=== PATIENT | male | born 1965 ===

== ENCOUNTER 2017-07-27 12:44 | Emergency (ER) | payer MEDICAID ==
[2017-07-27 12:45] VITALS: BMI 31.0
[2017-07-27 13:02] VITALS: BP 145/88; PULSE 78; RESP 20; TEMP 98.5; O2SAT 99
[2017-07-27 14:10] LABS: BASO # 0.1 K/uL (0.0-0.2); BASO % 1.2 % (0.0-2.0); EOS # 0.3 K/uL (0.0-0.7); EOS % 3.8 % (0.0-4.0); LYMPH # 2.6 K/uL (1.0-4.3); LYMPH % 38.1 % (20.0-40.0); MEAN CELL VOLUME 77.8 fL (80.0-94.0); MEAN CORPUSCULAR HEMOGLOBIN 25.5 pg (27.0-31.0); MEAN CORPUSCULAR HGB CONC 32.8 g/dL (33.0-37.0); MEAN PLATELET VOLUME 8.2 fL (7.2-11.7); MONO # 0.6 K/uL (0.0-0.8); MONO % 8.1 % (0.0-10.0); NEUT # 3.3 K/uL (1.8-7.0); NEUT % 48.8 % (50.0-75.0); NRBC % 0.1 % (0.0-2.0); RBC 5.49 Mil/uL (4.40-5.90); RED CELL DISTRIBUTION WIDTH 16.3 % (11.5-14.5); WHITE BLOOD COUNT 6.8 K/uL (4.8-10.8)
--- NOTE | 2017-07-27 14:16 | RAD ---
PROCEDURE: Radiographs of the chest and abdomen (obstructive series) HISTORY: Abdominal pain COMPARISON: No prior. TECHNIQUE: AP radiograph of the chest, with upright and supine radiographs of the abdomen. FINDINGS: CHEST: Lungs: The lungs are clear. Cardiovascular: Normal size heart. No pulmonary vascular congestion. Pleura: No pleural fluid. No pneumothorax. Other findings: None. ABDOMEN AND PELVIS: Bowel: There is large amount of stool in the colon. No evidence of mechanical obstruction. Free air: None. Bones: Unremarkable. Other findings: None. IMPRESSION: Constipation. No evidence of bowel obstruction. Clear lungs.
[2017-07-27 14:18] LABS: URINE BILIRUBIN NEGATIVE (NEGATIVE); URINE BLOOD NEGATIVE (NEGATIVE); URINE CLARITY Clear (Clear); URINE COLOR Colorless (YELLOW); URINE GLUCOSE (UA) NORMAL (Normal); URINE LEUKOCYTE ESTERASE NEG Leu/uL (Negative); URINE NITRATE NEGATIVE (NEGATIVE); URINE PROTEIN NEGATIVE (NEGATIVE); URINE UROBILINOGEN NORMAL mg/dL (0.2-1.0)
[2017-07-27 14:24] LABS: ALB/GLOB RATIO 1.3 (1.0-2.1); ALBUMIN 4.1 g/dL (3.5-5.0); ALT/SGPT 42 U/L (21-72); AST/SGOT 24 U/L (17-59); BLOOD UREA NITROGEN 11 mg/dL (9-20); CALCIUM 8.2 mg/dl (8.6-10.4); GFR AFRICAN-AMERICAN > 60; GFR NON-AFRICAN AMERICAN > 60; LIPASE 72 U/L (23-300)
--- NOTE | 2017-07-27 14:31 | C.PDOC ---
History Of Present Illness 52 year old male with no significant PMHx presents to the ED for evaluation of burning like discomfort in his abdomen that radiates up into his chest that worsens with food for the past 5 days. Patient states he does not have a PMD currently and had not taken any medications for her symptoms. Patient denies nausea, vomit, diarrhea, dysuria, hematuria, fever, chills. Chief Complaint (Nursing): Abdominal Pain History Per: Patient History/Exam Limitations: no limitations Onset/Duration Of Symptoms: Days Current Symptoms Are (Timing): Still Present Location Of Pain/Discomfort: Diffuse Radiation Of Pain To:: None Quality Of Discomfort: Burning Associated Symptoms: denies: Fever, Nausea, Vomiting, Diarrhea, Chest Pain, Constipation Exacerbating Factors: None Alleviating Factors: None Recent travel outside of the [place]: No Additional History Per: Patient Past Medical History Reviewed: Historical Data, Nursing Documentation, Vital Signs Vital Signs: Last Vital Signs Temp 98.5 F 07/27/17 13:01 Pulse 78 07/27/17 13:01 Resp 20 07/27/17 13:01 BP 145/88 07/27/17 13:01 Pulse Ox 99 07/27/17 14:40 - Medical History PMH: HTN Surgical History: Appendectomy Family History: States: Unknown Family Hx - Social History Hx Tobacco Use: No Hx Alcohol Use: No Hx Substance Use: No - Immunization History Hx Tetanus Toxoid Vaccination: No Hx Influenza Vaccination: No Hx Pneumococcal Vaccination: No Review Of Systems Constitutional: Negative for: Fever, Chills Cardiovascular: Negative for: Chest Pain, Palpitations Gastrointestinal: Positive for: Abdominal Pain. Negative for: Nausea, Vomiting Genitourinary: Negative for: Dysuria, Frequency Musculoskeletal: Negative for: Back Pain Skin: Negative for: Rash Neurological: Negative for: Weakness, Numbness Physical Exam - Physical Exam Appears: Non-toxic, No Acute Distress Skin: Normal Color, Warm, Dry Head: Atraumatic, Normacephalic Eye(s): bilateral: Normal Inspection Nose: No Discharge, No Deformity Oral Mucosa: Moist Neck: Normal ROM, Supple Chest: Symmetrical Cardiovascular: Rhythm Regular, No Murmur Respiratory: Normal Breath Sounds, No Rales, No Rhonchi, No Wheezing Gastrointestinal/Abdominal: Bowel Sounds (active), Soft, No Tenderness, No Guarding, No Rebound, Hernia (reducible umbilical) Extremity: Normal ROM, No Pedal Edema, No Calf Tenderness, No Deformity, No Swelling Neurological/Psych: Oriented x3, Normal Speech, Normal Cognition Gait: Steady ED Course And Treatment - Laboratory Results Result Diagrams: 07/27/17 14:03 07/27/17 14:03 O2 Sat by Pulse Oximetry: 99 (On RA) Pulse Ox Interpretation: Normal - Other Rad Obstructive series X-Ray X-Ray: Viewed By Me, Read By Radiologist Interpretation: FINDINGS: CHEST: Lungs: The lungs are clear. Cardiovascular: Normal size heart. No pulmonary vascular congestion. Pleura: No pleural fluid. No pneumothorax. Other findings: None. ABDOMEN AND PELVIS: Bowel: There is large amount of stool in the colon. No evidence of mechanical obstruction. Free air: None. Bones: Unremarkable. Other findings: None. IMPRESSION: Constipation. No evidence of bowel obstruction. Clear lungs. Medical Decision Making Medical Decision Making: Impression : diffuse abdominal pain Plan: * labs * Obstructive series X-Ray * Protonix 40 mg IVP * Toradol 30 mg IVP * UA * patient states improvement, no further symptoms, no cp, no sob. Will discharge patient home to follow up pmd in 2 days. Disposition Counseled Patient/Family Regarding: Studies Performed, Diagnosis, Need For Followup, Rx Given - Disposition Referrals: at [facility] [Outside] Disposition: HOME/ ROUTINE Disposition Time: 14:34 Condition: IMPROVED Additional Instructions: follow up with medical clinic in 2 days call to make an appointment take medications as prescribed return to ER if symptoms worsens or progress Prescriptions: Famotidine [Pepcid] 20 mg PO BID #20 tab Polyethylene Glycol 3350 [Miralax] 17 gra PO DAILY PRN #12 ml PRN Reason: Constipation Instructions: Constipation (DC), Abdominal Pain (ED) Forms: [facility] ([place] Islander), Gen Discharge Inst [place]ican, [facility] ([place]ican) Print Language: CUBAN - Clinical Impression Clinical Impression: Abdominal pain, Constipation - Scribe Statement The provider has reviewed the documentation as recorded by the Scribbennie Serna All medical record entries made by the Scribe were at my direction and personally dictated by me. I have reviewed the chart and agree that the record accurately reflects my personal performance of the history, physical exam, medical decision making, and the department course for this patient. I have also personally directed, reviewed, and agree with the discharge instructions and disposition.
== END 2017-07-27 14:57 | disposition home or self-care (01) ==
LOC: C.ER 12:44
DX: K59.00 Constipation, unspecified (principal); R10.84 Generalized abdominal pain; I10 Essential (primary) hypertension
CPT/HCPCS: 74022; 80053; 81001; 83690; 85025; 96374; 96375; 99283; C9113; J1885